=== PATIENT | female | born 1975 | race Caucasian/White ===

== ENCOUNTER 2017-01-01 08:32 | Inpatient (IN) | payer OTHER ==
[2017-01-01] MEDS ORDERED: IV START KIT ONE (10:22)
[2017-01-01] MEDS ORDERED: LIDOCAINE 1% (PRES FREE) 30 ML VIAL ONE (10:22)
[2017-01-01] MEDS ORDERED: MINERAL OIL 25 ML BOT ONE (10:22)
[2017-01-01] MEDS ORDERED: LIDOCAINE Viscous 2% 15 ML UDCUP ONE (10:22)
[2017-01-01] MEDS ORDERED: OXYTOCIN 10 UNITS/ML VIAL ONE (10:22)
[2017-01-01] MEDS ORDERED: SODIUM CHLORIDE 0.9% FLUSH 10 ML ONE (10:22)
[2017-01-01] MEDS ORDERED: OXYTOCIN IN LR 500 ML IV ONE ×2 (10:23→21:15)
[2017-01-01] MEDS ORDERED: PUMP TUBING ONE ×5 (10:23→21:58)
[2017-01-01 11:37] VITALS: BMI 41.9
[2017-01-01] MEDS ORDERED: LACTATED RINGERS 1,000 ML IV PRN (11:42)
[2017-01-01] MEDS ORDERED: LACTATED RINGERS 1,000 ML IV SCH ×3 (11:45→18:30)
[2017-01-01] MEDS ORDERED: PENICILLIN G POTASSIUM 5 MMU VIAL ONE (11:55)
[2017-01-01] MEDS ORDERED: NS 0.9% (MINI-BAG PLUS) 100 ML IV ONE (11:56)
[2017-01-01] MEDS ORDERED: PENICILLIN G POTASSIUM 5 MMU in NS 0.9% (MINI-BAG PLUS) 100 ML IV ONE (12:00)
[2017-01-01 12:25] LABS: ABSOLUTE NEUTROPHIL COUNT 10.3 K/mm3 (1.8-7.7); BASO % 0.3 % (0.2-1.0); EOS # 0.1 (0.0-0.5); EOS % 0.7 % (0.9-2.9); HEMATOCRIT 32.3 % (37.0-47.0); HEMOGLOBIN 10.7 gm/l (12.0-16.0); IMM NEUT # 0.1 K/mm3 (0-0.2); IMM NEUT% 0.4 % (0-1); LYMPH # 2.2 (1.0-4.8); LYMPH % 16.5 % (15-45); MEAN CELL VOLUME 80.3 fl (81.0-99.0); MEAN CORPUSCULAR HEMOGLOBIN 26.6 pg (27.0-31.0); MEAN CORPUSCULAR HGB CONC 33.1 g/dl (33.0-37.0); MEAN PLATELET VOLUME 11.9 fl (7.4-10.4); MONO # 0.8 (0.0-0.8); MONO % 5.9 % (4-12); NEUT % 76.2 % (43-75); PLATELET COUNT 202 K/mm3 (130-400); RED CELL DISTRIBUTION WIDTH 13.2 % (11.5-14.5)
[2017-01-01 12:48] LABS: ALB/GLOB RATIO 1.2 (>1.0); ALBUMIN 3.2 gm/dL (3.5-5.7); CALCIUM 8.8 mg/dL (8.6-10.3)
--- NOTE | 2017-01-01 13:01 | PCMAN ---
OB Admission Note - History : 3 Term: 1 : 0 Abortions (S&E): 1 Livin EDC:: 12/26/16 Gestational Age (weeks): 40 Days (#/7): 6 Admit Cervical Dilation:: 3 Admit Cervical Effacement (%):: 50 Admit Station:: -2 Admit Presentaton:: Vertex Membrane Status: Ruptured Rupture (Date): 01/01/17 Rupture (Time): 07:20 Membranes Comment:: clear, non-odorous Contractions: Yes Contraction Frequency:: 2-5 Heart Rate:: 135 (moderate variability, accels present, decels absent) Status:: Category 1 EFW:: 7.5lbs Summary of Course:: Onset of care at 10wks x18 visits. NORMA by sure LMP. course complicated by AMA status, GBS positive status, labile blood pressures with negative preeclampsia labs (now meets criteria for mild gestational hypertension ), and well-controlled hypothyroidism (managed by [facility]). OB history significant for 1 of a 6lb 12oz baby girl, gestational hypertension at the end of that . Declined IOL at 40wks for AMA status, had reassuring testing and was scheduled for an IOL on 01/02/17. Now presents to [facility] c/o SROM in early labor for GBS prophylaxis. Total weight gain in = 26lbs , pre- BMI=37.5. - Labs Hct/Hgb:: 33.5/10.7 Rubella Status: Non-immune GBS Status: Positive Abnormal Labs: None - Review of Systems Mild contractions, SROM for clear fluid. Denies decreased movement and vaginal bleeding. - Physical Exam Psych/Mental Status: Mood/Affect Appropriate Lungs: Clear to Auscultation Bilaterally Cardiovascular: Regular Rate and Rhythm Genitourinary: Normal Female Genitalia Skin: Normal Color - Problems (1) SROM (spontaneous rupture of membranes) Status: AcuteAssessment/Plan: A: 41yo IUP at 40w6d Early labor Fetus Category 1 SROM-clear fluid at 0720 GBS positive Gestational hypertension-admit preeclampsia labs pending, denies s/s preeclampsia, BPs primarily in mild range Advanced maternal age Hypothyroidism EFW=7.5lbs Rubella non-immune P: Admit to FB for GBS prophylaxis-PCN ordered IV placed and preeclampsia labs collected cEFM per protocol for gHTN-will use telemetry and encourage upright positions and movement q1hr blood pressures Pt's home levothyroxine medication sent to pharmacy for verification Pt plans non-pharmacologic methods of pain management-hydrotherapy, breathing, movement, etc. Discussed plan of care with patient and her family. Reviewed need for cEFM due to high blood pressures. Will expectantly manage for ~4hrs and reassess for labor progress. Pt aware that we may need to augment her labor if she does not progress, due to her gHTN. Pt also aware of need for potential transfer to OB team if she has sustained BPs in severe range (>160/110) or if she develops symptoms of severe preeclampsia. On-call OB aware of pt status Anticipate active labor and
[2017-01-01 13:20] LABS: CREATININE,RANDOM URINE 33 mg/dL
[2017-01-01] MEDS: OXYTOCIN IN LR 500 ML IV PRN ×2 (15:17→16:18)
--- NOTE | 2017-01-01 15:27 | PDOC36 ---
Provider Note Subject: Labor progress note: S: Arlen reports that her contractions aren't as strong as they were earlier. O: VS: 140/81 HR 90 T 98.4F RR 18 SVE: 3cm/50%/-2, medium, mid-position (per RN exam at 0900), Cassidy's score=6 Fetus: Baseline 125, moderate variability, accels present, decels absent Ctx: q2-4.5min, mild to moderate per palpation Labs: P/C ratio=1.5, other preeclampsia labs WNL A: 41yo IUP at 40w6d Latent labor Fetus Category 1 SROM [id number] fluid, afebrile GBS positive-x 2 doses of PCN given Preeclampsia-occasional severe-range BPs but primarily mild-range, asymptomatic AMA P: Continue GBS prophylaxis per protocol cEFM per protocol Vital signs per protocol Minimize vaginal exams due to SROM status Discussed new diagnosis of preeclampsia with pt and her family. Reviewed need to continue helping labor progress in light of this new diagnosis. Recommend to being pitocin augmentation. Risks and side effects of pitocin reviewed and verbal informed consent was obtained. Pitocin orders placed. Non-pharmacologic methods of pain management-hydrotherapy, breathing, movement, labor support, etc. On-call OB aware of change in pt status. Will consult/transfer care PRN Anticipate active labor and
[2017-01-01] MEDS ORDERED: PENICILLIN G 3 MIL UNIT PREMIX 0 ML IV ONE (15:56)
[2017-01-01] MEDS ORDERED: PENICILLIN G 3 MIL UNIT PREMIX 3 MMU in Premix (D5W) 50 ml 1 EACH IV SCH (16:00)
--- NOTE | 2017-01-01 17:48 | PDOC36 ---
Provider Note Subject: Labor progress note: S: Arlen reports that her contractions became more painful at 1700 and occasionally she has some pressure/urge to push. Denies s/s preeclampsia-COCHRAN, visual changes, sudden swelling, epigastric pain. O: VS: 210/96 (automatic large cuff), 164/100 (large manual cuff) SVE: 5cm/85%/-2 Fetus: Baseline 120, moderate variability, accels present, decels absent Ctx: q2-4min, moderate per palpation A: 41yo IUP at 40w6d Transitioning into active labor-pitocin augmentation Fetus Category 1 SROM [id number] fluid, afebrile GBS positive-x 2 doses of PCN given Preeclampsia-severe range blood pressures AMA P: Formal OB consult requested for Dr. Solis to evaluate pt in-person for need for antihypertensive meds and/or mag sulfate. Activity: bed Closely monitor pt status
[2017-01-01] MEDS ORDERED: MAGNESIUM SULFATE 20 G/500 ML 500 ML IV ONE (18:17)
[2017-01-01] MEDS ORDERED: MAGNESIUM SULFATE 4 G/100 ML 100 ML IV ONE (18:17)
[2017-01-01] MEDS ORDERED: BUTORPHANOL TARTRATE 1 MG/ML VIAL IV ONE (18:25)
[2017-01-01] MEDS ORDERED: MAGNESIUM SULFATE 4 G/100 ML 4 G in PREMIX BAG 1 EACH IV ONE (18:30)
[2017-01-01] MEDS ORDERED: LABETALOL HCL 5 MG/ML 20ML VIAL IV ONE ×2 (18:40→19:20)
[2017-01-01] MEDS ORDERED: PENICILLIN G 3 MIL UNIT PREMIX 50 ML IV ONE (19:04)
[2017-01-01] MEDS: MAGNESIUM SULFATE 20 G/500 ML 500 ML IV SCH (19:20)
[2017-01-01 20:07] LABS: FIBRINOGEN > 450 mg/dL (210-360); INR 0.85; PARTIAL THROMBOPLASTIN TIME 22.5 SECONDS (24.5-33.0); PROTHROMBIN TIME 8.8 SECONDS (9.3-11.4)
[2017-01-01] MEDS ORDERED: LIDOCAINE 1% (PRES FREE) 30 ML VIAL SUB-Q ONE (21:28)
[2017-01-01] MEDS: LACTATED RINGERS 1,000 ML IV SCH (21:45)
--- NOTE | 2017-01-01 21:48 | PCMDEL ---
Delivery Note - Labor 1st stage (hr/min):: 4hrs 48 min 2nd stage (hr/min):: 9 min 3rd stage (hr/min):: 5min Total (hr/min):: 5hrs 12 min Pushed (hr/min):: 9 min - Delivery Delivery (Date): 01/01/17 Delivery (Time): 19:57 Gender: Male Presentation: Cephalic Position: OA Operative Delivery:: Vacuum Umbilical Cord: 3 Vessel Delayed Cord Clamping:: > 3 min 1 Minute Total: 8 5 Minute Total: 9 Placenta:: intact EBL:: 400cc Perineum:: 2nd degree laceration, right labial laceration, and subclitoral laceration Suture:: 2-0 and 3-0 chromic Anesthesia/Meds:: lidocaine Length ROM:: 14 hrs 47 min Comments:: delivery note: patient progressed to fully dilated +2/+3 station, anthony position, and prolonged decelerations x 5 minuntes. after verbal consent from patient for vacuum extraction, vacuum placed in midsagital suture line anterior to the posterior fontanelle approximately 1.5 cm away. with next contraction patient pushed effectively and traction applied, gently guiding the head out. the vacuum did not slip during the application and baby's head delivered with during the one contraction after the vacuum had been applied. tight nuchal cord noted. downward traction applied to deliver the anterior shoulder, however shoulder dystocia identified. gayathri ramey's maneuver attempted with suprapubic pressure, but shoulder could not be delivered. patient's legs then taken out of gayathri ramey's maneuver, extended towards the floor, then flexed back in the gayathri hensley maneuver. suprapubic pressure applied by rn, then anterior shoulder delivered without difficulty using downward traction followed by posterior shoulder, nuchal cord reduced, then baby's body delivered. baby cried spontaneously, and placed skin to skin on mother's abdomen. maneuvers to facilitate delivery of the shoulders lasted less than one minute, while the vacuum extraction also lasted less than one minute. delayed cord clamping performed. cord blood obtained, then placenta delivered spontaneously and intact. a second degree laceration was noted in the midline of the perineum. rectal exam did not show any extension to the rectum or near the sphincter. the second degree laceration was repaired in usual fashion with 2-0 chromic continuous sutures. a superficial laceration involving the right labia superiorly was repaired with interrupted 3-0 chromic sutures. a subclitoral superficial laceration was repaired with 3-0 interrupted sutures. 1% lidocaine was used for anesthesia. no other vaginal lacerations were noted. rectal exam after repair was negative with the sphincter intact and an external hemorrhoid noted. the subclitoral laceration extended to but did not involve the urethral opening. cervix intact. sponge, instrument and needle count correct. after delivery and repair i explained the reasons for the vacuum extraction, the lacerations, care and repair with patient, and mother. all questions were answered. most recent pressure at 9:45pm 149/93
[2017-01-01] MEDS ORDERED: BENZOCAINE/MENTHOL 60 APPLIC/BOT TP PRN (21:49)
[2017-01-01] MEDS ORDERED: LANOLIN 50 APPLIC/7G TUBE TP PRN (21:49)
[2017-01-01] MEDS ORDERED: SENNOSIDES 8.6 MG TABLET PO PRN (21:49)
[2017-01-01] MEDS ORDERED: MAGNESIUM HYDROXIDE 30 ML UDCUP PO PRN (21:49)
--- NOTE | 2017-01-01 22:27 | CONS ---
ITZEL TORRES [id number] DATE OF : 1975 HISTORY OF PRESENT ILLNESS: This is a 41-year-old female admitted in labor by Erick Lay CNM. Her estimated date of delivery is 12/26/2016, and she is currently 40 weeks and 6 days. OB HISTORY: G-3, P-1, 0-1-1. One spontaneous and one vaginal delivery of a 6 pound and 12 ounce baby at [facility]. RAISIN WASHER HISTORY: Menarche 14 x 28 x 6. PAST MEDICAL HISTORY: Positive for: 1. Hypertension in her first towards the end of . 2. History of hypothyroidism. She is managed with levothyroxine. PAST SURGICAL HISTORY: Negative. SOCIAL HISTORY: Nonsmoker and nondrinker. FAMILY HISTORY: Negative. REVIEW OF SYSTEMS: Patient currently in labor. PHYSICAL EXAMINATION: GENERAL: A healthy female in labor. ABDOMEN: Gravid. Estimated weight is 7 1/2 pounds. PELVIC: Exam showed the cervix to be 6 cm, 70 and zero station, with a bloody shell. EXTREMITIES: Reflexes were 3+ and she has 1+ pitting edema. I was called-in by Erick Lay the driver manager to evaluate the patient for magnesium sulfate, as the patient had hyperreflexia and blood pressures in the 160/100 to 210/96 with proteinuria. IMPRESSION: Severe preeclampsia. I have recommended that we start a magnesium sulfate loading dose of 4 grams, and with a maintenance dose of 1.5 grams an hour, followed by labetalol and apresoline (if needed). heart tracing is Category 1. The patient is in active labor. PLAN: Magnesium sulfate, labetalol, apresoline if needed, anticipate vaginal delivery.
[2017-01-01] MEDS: IBUPROFEN 800 MG TABLET PO PRN (23:15)
[2017-01-01] MEDS: OXYCODONE/ACETAMINOPHEN 5/325 MG TABLET PO PRN (23:15)
[2017-01-02] MEDS: OXYCODONE/ACETAMINOPHEN 5/325 MG TABLET PO PRN ×5 (03:12→22:06)
[2017-01-02] MEDS: LACTATED RINGERS 1,000 ML IV SCH (06:07)
--- NOTE | 2017-01-02 06:18 | PDOC36 ---
Provider Note Note: ob attending note: patient had loading dose of 4 gms mgso4, now receiving 1gm/ hr. labetolol: 20 mg IV bolus followed by 40mg dose. blood pressure:150/85. patient pushing involuntarily. exam by marcos ortiz: 9cm/0 station. anticipate vaginal delivery. will hold follow up labetolol dose because bp is below threshold. no other symptoms of headache or right upper quadrant pain.
[2017-01-02 06:22] LABS: HEMATOCRIT 27.4 % (37.0-47.0); HEMOGLOBIN 9.1 gm/l (12.0-16.0); MEAN CELL VOLUME 80.8 fl (81.0-99.0); MEAN CORPUSCULAR HEMOGLOBIN 26.8 pg (27.0-31.0); MEAN CORPUSCULAR HGB CONC 33.2 g/dl (33.0-37.0); RED CELL DISTRIBUTION WIDTH 13.4 % (11.5-14.5)
--- NOTE | 2017-01-02 06:27 | PDOC44 ---
- Subjective Day: 1 (headache, no other complaints) Reports Pain Tolerable, Reports , Reports Lochia Moderate, Reports Tolerating Clear Liquids, Reports Tolerating Regular Diet, Denies Nausea, Denies Vomiting, Denies Fever - Objective Temp Pulse Resp BP Pulse Ox 97.8 F 85 16 136/79 98 01/02/17 03:30 01/02/17 04:30 01/02/17 04:30 01/02/17 04:30 01/02/17 04:30 Lab Results 01/01/17 12:05 WBC 13.6 H RBC 4.02 L Hgb 10.7 L Hct 32.3 L Plt Count 202 Creatinine 0.7 AST 18 ALT 12 01/01/17 01/01/17 12:05 06:45 MCV 80.3 L MCH 26.6 L Neut % (Auto) 76.2 H Absolute Neuts (auto) 10.3 H Eosinophils % 0.7 L PT 8.8 L PTT 22.5 L Fibrinogen > 450 H D-Dimer 1.85 H Sodium 132 L Carbon Dioxide 19 L Glucose 101 H Total Protein 5.9 L Albumin 3.2 L Current Medications Generic Name Dose Route Start Last Admin Trade Name Freq PRN Reason Stop Dose Admin Benzocaine/Menthol 1 applic 01/01/17 21:49 01/01/17 23:15 Dermoplast TP 1 bot PRN PRN Administration Patient Comfort Emollient Ointment 1 applic 01/01/17 21:49 [id number] TP PRN PRN sore nipples Magnesium Sulfate 500 mls @ 25 mls/hr 01/01/17 19:00 01/01/17 19:20 Magnesium Sulfate IV 25 mls/hr Q20H JOHN Administration 1 G/HR Lactated Ringer's 1,000 mls @ 125 mls/hr 01/02/17 00:15 01/02/17 06:07 Lactated Ringers IV 125 mls/hr .Q8H JOHN Administration Ibuprofen 800 mg 01/01/17 21:49 01/01/17 23:15 Motrin PO 800 mg Q8H PRN Administration Pain (Mild) Magnesium Hydroxide 30 ml 01/01/17 21:49 Milk Of Magnesia PO BEDTIME PRN Constipation Oxycodone/Acetaminophen 1 - 2 tab 01/01/17 21:49 03/18/17 03:12 Percocet 5/325 PO 2 tab Q4H PRN Administration Pain (Moderate) Senna 17.2 mg 01/01/17 21:49 Senokot PO BEDTIME PRN Comfort Sodium Chloride 10 ml 01/01/17 21:49 Normal Saline 10ml Flush IV PRN PRN IV Flush - Physical Exam General: Afebrile, No Acute Distress Psych/Mental Status: Mood/Affect Appropriate, Judgment/Insight Intact, Bonding Well Breast: Soft, Skin intact, Nipples Intact, No Tenderness, No Erythema, No Engorged Fundus: Firm, Midline, Below Umbilicus, Other (nontender) Genitourinary: Other (voiding without difficulty) Lochia: Moderate Extremities: Edema (+1/+1 edema), No Tenderness Deep Tendon Reflexes: Patellar (L): 2+ (Brisk, Normal), Patellar (R): 2+ (Brisk , Normal) - Problems:Assessment/Plan (1) Severe pre-eclampsia Status: Acute (2) Hypothyroidism Status: Acute (3) Second degree laceration of perineum, delivered, current hospitalization Status: Acute (4) Perineal laceration involving labia Status: Acute (5) Obstetric labial laceration, delivered, current hospitalization Status: Acute (6) Anemia, Status: Acute Disposition: Stable, Anticipate DC Home Tomorrow
[2017-01-02 06:50] LABS: ALB/GLOB RATIO 1.1 (>1.0); ALBUMIN 2.7 gm/dL (3.5-5.7); CALCIUM 8.4 mg/dL (8.6-10.3); MAGNESIUM 3.2 mg/dL (1.9-2.7)
[2017-01-02] MEDS: LEVOTHYROXINE SODIUM 88 MCG TABLET PO SCH (07:56)
[2017-01-02] MEDS: IBUPROFEN 800 MG TABLET PO PRN ×2 (08:29→16:40)
[2017-01-02] MEDS: FERROUS SULFATE (65 Fe) 325 MG TABLET PO SCH (08:29)
[2017-01-02] MEDS: DOCUSATE SODIUM 100 MG CAPSULE PO PRN (09:00)
[2017-01-02] MEDS: MAGNESIUM SULFATE 20 G/500 ML 500 ML IV SCH (16:58)
[2017-01-03] MEDS: IBUPROFEN 800 MG TABLET PO PRN ×2 (01:18→10:30)
[2017-01-03] MEDS ORDERED: IV START KIT ONE (03:18)
[2017-01-03] MEDS: OXYCODONE/ACETAMINOPHEN 5/325 MG TABLET PO PRN ×3 (03:26→12:59)
[2017-01-03] MEDS: FERROUS SULFATE (65 Fe) 325 MG TABLET PO SCH (07:59)
[2017-01-03] MEDS: DOCUSATE SODIUM 100 MG CAPSULE PO PRN (07:59)
[2017-01-03] MEDS: LEVOTHYROXINE SODIUM 88 MCG TABLET PO SCH (08:02)
[2017-01-03 08:06] VITALS: BP 140/74
--- NOTE | 2017-01-03 11:10 | PDOC44 ---
- Subjective Day: 2 Arlen is doing well overall. Reports is going well, does have to help baby's bottom lip to uncurl, which has made the latch more comfortable. Has a breast pump at home, denies need for Rx at this time. Has good family support for going home. Only complaint is that her swelling has worsened slightly-now feels swollen in pads of feet. Reports Flatus, Reports Pain Tolerable, Reports , Reports Lochia Light, Reports Tolerating Regular Diet - Objective Temp Pulse Resp BP Pulse Ox 97.9 F 85 18 140/74 99 01/03/17 01:20 01/03/17 08:05 01/03/17 08:05 01/03/17 08:05 01/02/17 20:30 Current Medications Generic Name Dose Route Start Last Admin Trade Name Freq PRN Reason Stop Dose Admin Benzocaine/Menthol 1 applic 01/01/17 21:49 01/01/17 23:15 Dermoplast TP 1 bot PRN PRN Administration Patient Comfort Docusate Sodium 100 mg 01/02/17 08:36 01/03/17 07:59 Colace PO 100 mg DAILY PRN Administration Constipation Emollient Ointment 1 applic 01/01/17 21:49 [id number] TP PRN PRN sore nipples Ferrous Sulfate 325 mg 01/02/17 09:00 01/03/17 07:59 Ferrous Sulfate PO 325 mg DAILY JOHN Administration Lactated Ringer's 1,000 mls @ 125 mls/hr 01/02/17 00:15 01/02/17 06:07 Lactated Ringers IV 125 mls/hr .Q8H JOHN Administration Ibuprofen 800 mg 01/01/17 21:49 01/03/17 01:18 Motrin PO 800 mg Q8H PRN Administration Pain (Mild) Levothyroxine Sodium 88 mcg 01/02/17 07:30 01/03/17 08:02 Levothroid PO Not Given DAILY@0730 JOHN Magnesium Hydroxide 30 ml 01/01/17 21:49 Milk Of Magnesia PO BEDTIME PRN Constipation Oxycodone/Acetaminophen 1 - 2 tab 01/01/17 21:49 01/03/17 07:59 Percocet 5/325 PO 2 tab Q4H PRN Administration Pain (Moderate) Senna 17.2 mg 01/01/17 21:49 01/02/17 22:06 Senokot PO 17.2 mg BEDTIME PRN Administration Comfort Sodium Chloride 10 ml 01/01/17 21:49 01/03/17 03:27 Normal Saline 10ml Flush IV 10 ml PRN PRN Administration IV Flush - Physical Exam General: Other (Physical exam deferred to Dr. Solis) - Problems:Assessment/Plan (1) care and examination of lactating mother Status: AcuteAssessment/Plan: A: Day 2 PP s/p vacuum assisted vaginal delivery complicated by severe preeclampsia Lochia stable is going well overall Swelling increasing slightly BPs stable and followed by OBs Co-managed by CNMs and OBs P: Education: handout given and reviewed. Warning signs discussed ( PIH s/s, bleeding, infection, DVT/PE, baby blues vs mood disorder) : continue to work on helping baby's bottom lip to uncurl, [facility]AB[facility] clinic appt prn, nipple cream prn Contraception: vasectomy for (not scheduled yet), briefly discussed options in meantime (condoms, mini-pill, depo) Social: excellent social support Preeclampisa: Dr. Solis will discuss education and follow-up for this. Knows to call OBs if swelling increases further or if she develops s/s PIH. Follow-up: with OB team in 1 week for BP check, then in 2 weeks for visit with CNMs. Disposition: Anticipate DC to Home
--- NOTE | 2017-01-03 12:47 | PDOC39B ---
Hospital Course: ADMIT DATE: 01/01/17 DISCHARGE DATE: 01/03/17 ADMISSION DIAGNOSES: intrauterine at 40.6 weeks, spontaneous rupture of membranes, labor, gestational hypertension, hyporthyoidism, group b strep positive PROCEDURES: vacuum extraction, repair of second degree laceration and labial lacerations, preeclampsia management HISTORY OF PRESENT ILLNESS: 41 year old G3 T1 L1 at 40 weeks 6 days presenting with spontaneous rupture of membranes, labor, history of hypothyroidism, gestational hypertension and positive group b strep infection HOSPITAL COURSE: The patient developed severe preeclampsia, which improved after delivery of baby, remainder of post course was uneventful. By day of discharge the patient is ambulating, eating, voiding, and passing flatus without difficulty. Pain is controlled and lochia is appropriate. She is [] - Physical Exam Vital Signs: Temp Pulse Resp BP Pulse Ox 97.9 F 85 18 140/74 99 01/03/17 01:20 01/03/17 08:05 01/03/17 08:05 01/03/17 08:05 01/02/17 20:30 General: Afebrile, No Acute Distress Psych/Mental Status: Mood/Affect Appropriate, Judgment/Insight Intact, Bonding Well Breast: Soft, Skin intact, Nipples Intact, No Tenderness, No Erythema, No Engorged Fundus: Firm, Midline, Below Umbilicus, Other (nontender) Genitourinary: Other (voiding without difficulty) Lochia: Light Extremities: Edema, Other (minimal non pitting edema), No Tenderness Deep Tendon Reflexes: Patellar (L): 2+ (Brisk, Normal), Patellar (R): 2+ (Brisk , Normal) - Discharge Diagnosis (1) Severe pre-eclampsia Status: Acute (2) Hypothyroidism Status: Acute (3) Second degree laceration of perineum, delivered, current hospitalization Status: Acute (4) Perineal laceration involving labia Status: Acute (5) Obstetric labial laceration, delivered, current hospitalization Status: Acute (6) Anemia, Status: Acute (7) Shoulder dystocia during labor and delivery Status: Acute (8) Nuchal cord affecting delivery Status: Acute - Discharge Plan Condition: Stable Disposition: Home Instruction Forms: Vaginal Discharge Instructions Additional Instructions: office visit 3 days for blood pressure check, nothing in vagina x 6 weeks, call if any abdominal pain, headache or scotoma (spots before eyes), analgesics as needed, take prescribed meds as written
== END 2017-01-03 13:35 | disposition home or self-care (01) | DRG 775 ==
LOC: FBC 08:32 → FBCOUT 08:32 → FBC 08:33 → FBCOUT 09:00 → FBC 09:00
PROVIDERS: ADMIT Registered Nurse; ATTEND Obstetrics & Gynecology
PROC: 10D07Z6 Extraction of Products of Conception, Vacuum, Via Natural or Artificial Opening (ICD-10-PCS; principal; 2017-01-01)
PROC: 0KQM0ZZ Repair Perineum Muscle, Open Approach (ICD-10-PCS; 2017-01-01)
PROC: 0UQJXZZ Repair Clitoris, External Approach (ICD-10-PCS; 2017-01-01)
PROC: 0UQM0ZZ Repair Vulva, Open Approach (ICD-10-PCS; 2017-01-01)
DX: O99.824 Streptococcus B carrier state complicating childbirth (principal); O14.14 Severe pre-eclampsia complicating childbirth; O99.284 Endocrine, nutritional and metabolic diseases complicating childbirth; E03.9 Hypothyroidism, unspecified; Z37.0 Single live birth; Z3A.40 40 weeks gestation of pregnancy; O75.89 Other specified complications of labor and delivery; O70.1 Second degree perineal laceration during delivery; O76 Abnormality in fetal heart rate and rhythm complicating labor and delivery; O69.1XX0 Labor and delivery complicated by cord around neck, with compression, not applicable or unspecified; O66.0 Obstructed labor due to shoulder dystocia; O87.2 Hemorrhoids in the puerperium; O90.81 Anemia of the puerperium